=== PATIENT | male | born 1995 | race Two or more races ===

== ENCOUNTER 2018-02-09 18:37 | Emergency (ER) | payer OTHER ==
--- NOTE | 2018-02-09 18:51 | EDPHY ---
H & P Stated Complaint: anxiety, can't sleep Time Seen by Provider: 02/09/18 18:40 HPI/ROS: 22-year-old male presents complaining of difficulty sleeping/insomnia for approximately 6 months with associated anxiety. He denies suicidal or homicidal ideation he denies current drug use. He states sometimes melatonin has helped him sleep but he does not take on a regular basis. The main reason he is here today is he needs a work note because he missed work today secondary to his inability to sleep. He plans to go to work tomorrow but must arrive with a work note. Additionally he has concerned that he may have been exposed to gonorrhea and would like to be tested for that. He has had some burning with urination. Review of systems As per HPI General no fever no chills no weakness HEENT no eye pain no eye discharge. No eye redness, no sore throat Respiratory no cough, no shortness of breath Cardiac no chest pain, no peripheral edema GI no abdominal pain, no diarrhea, no constipation, no nausea, no vomiting no flank pain, no hematuria, positive dysuria Musculoskeletal no myalgias, no joint pain Heme no easy bruising, no easy bleeding Endo no polyuria, no polydipsia Skin no rashes, no pruritus Neuro no syncope, no dizziness, no headaches Psych is no suicidal ideation, no homicidal ideation, positive anxiety positive insomnia Source: Patient Exam Limitations: No limitations - Personal History Current Tetanus Diphtheria and Acellular Pertussis (TDAP): Yes - Medical/Surgical History Hx Asthma: No Hx Chronic Respiratory Disease: No Hx Diabetes: No Hx Cardiac Disease: No Hx Renal Disease: No Hx Cirrhosis: No Hx Alcoholism: No Hx HIV/AIDS: No Hx Splenectomy or Spleen Trauma: No Other PMH: ADHD, insomnia, depression - Family History Significant Family History: No pertinent family hx - Social History Smoking Status: Smoker current status UNK Alcohol Use: None Drug Use: None - Physical Exam Exam: 22-year-old male alert and oriented no acute distress slightly anxious appearing , then HEENT atraumatic normocephalic, extraocular muscles intact, anicteric Oropharynx negative for erythema negative exudate, tolerating her own secretions Neck supple no meningismus Lungs clear to auscultation bilaterally Heart regular rate and rhythm without murmur rub or gallop Abdomen nondistended normoactive bowel sounds soft nontender Back no CVA tenderness, no step-offs, no spinal tenderness Extremities no cyanosis clubbing or edema Neuro alert and oriented, no focal deficits Constitutional: Initial Vital Signs Temperature (C) 37 C 02/09/18 18:42 Heart Rate 60 02/09/18 18:42 Respiratory Rate 16 02/09/18 18:42 Blood Pressure 116/66 02/09/18 18:42 O2 Sat (%) 97 02/09/18 18:42 O2 Delivery Mode Room Air Allergies/Adverse Reactions: No Known Allergies Allergy (Unverified 02/09/18 18:47) Home Medications: Medication Instructions Recorded NK [No Known Home Meds] 02/09/18 Medical Decision Making ED Course/Re-evaluation: Patient seen and evaluated for needing a work note, dysuria with concern for exposure to gonorrhea, insomnia of 6 months duration. Work note provided Urine GC and chlamydia result pending UA no evidence of UTI however small amount of bacteria so culture sent Discussed insomnia and anxiety with patient who plans to follow up with his primary care [facility] also given mental health resources. Imp anxiety insomnia dysuria plan dc home will contact when gc/chlam results return f/u pcp Differential Diagnosis: Differential diagnosis considered but not limited to: 1. Dysuria Urinary tract infection, urethritis, new onset diabetes 2. Anxiety 3. Insomnia Anxiety, depression - Data Points Laboratory Results: 02/09/18 02/09/18 19:15 19:15 Urine Color YELLOW Urine Appearance HAZY Urine pH 7.5 (5.0-7.5) Ur Specific [place] 1.015 (1.002-1.030) Urine Protein NEGATIVE (NEGATIVE) Urine Ketones NEGATIVE (NEGATIVE) Urine Blood TRACE H (NEGATIVE) Urine Nitrate NEGATIVE (NEGATIVE) Urine Bilirubin NEGATIVE (NEGATIVE) Urine Urobilinogen 0.2 EU EU (0.2-1.0) Ur Leukocyte Esterase NEGATIVE (NEGATIVE) Urine RBC OCCASIONAL /hpf /hpf (0-3) Urine WBC NONE SEEN /hpf /hpf (0-3) Ur Epithelial Cells TRACE /lpf /lpf (NONE-1+) Amorphous Sediment 2+ /hpf H /hpf (NONE-1+) Urine Bacteria TRACE /hpf H /hpf (NONE SEEN) Urine Mucus 1+ /lpf /lpf (NONE-1+) Urine Sperm TRACE /hpf H /hpf (NONE SEEN) Urine Glucose NEGATIVE (NEGATIVE) C.trachomatis RNA (TMA) Pending N.gonorrhoeae RNA (TMA) Pending Departure - Departure Disposition: Home, Routine, Self-Care Clinical Impression: Dysuria, Insomnia, Anxiety Condition: Good Instructions: Insomnia (ED), Anxiety (ED) Referrals: NONE *PRIMARY CARE P,. [Primary Care Provider] - As per Instructions Stand Alone Forms: Work Excuse
[2018-02-09 20:00] VITALS: BP 118/76
[2018-02-11 12:46] LABS: GC AMPLIFICATION GENPROBE NEGATIVE (NEGATIVE)
== END 2018-02-09 19:58 | disposition home or self-care (01) ==
LOC: CED 18:37
DX: F41.9 Anxiety disorder, unspecified (principal); G47.00 Insomnia, unspecified; R30.0 Dysuria; F17.200 Nicotine dependence, unspecified, uncomplicated
CPT/HCPCS: 81003-PO; 81015-PO